=== PATIENT | male | born 1985 | race Caucasian/White ===

== ENCOUNTER 2017-05-06 10:03 | Emergency (ER) | payer OTHER ==
--- NOTE | 2017-05-06 10:15 | UC ---
Cardiac HPI - HPI Summary HPI Summary: sensation of heart racing today noticed the rate was as high as 170 on his watch. denies SOB/chest pain. This is the 3rd episode of such racing that he has had---he stopped inderal a few days ago--because his rate was controlled So he did take an inderal prior to arrival - History of Current Complaint Chief Complaint: UCCardiac Stated Complaint: HEART COMPLAINT Time Seen by Provider: 05/06/17 10:15 Hx Obtained From: Patient Onset/Duration: Sudden Onset, Lasting Hours, Still Present Timing: Constant Initial Severity: Moderate Current Severity: Moderate Character: Fast Aggravating: Nothing Alleviating: Medication - inderal - Allergy/Home Medications Allergies/Adverse Reactions: Allergies Allergy/AdvReac Type Severity Reaction Status Date / Time Hydrocodone Allergy Fatigue Verified 05/06/17 10:19 Nystatin [From Mycostatin] Allergy Anaphylatic Verified 05/06/17 10:19 Shock Home Medications: Home Medications Propranolol TAB* [Inderal TAB*] 20 mg PO DAILY PRN 05/06/17 [History Confirmed 05/06/17] PMH/Surg Hx/FS Hx/Imm Hx Previously Healthy: No Endocrine History: Hyperthyroidism - Family History Known Family History: Positive: None - Social History Occupation: Employed Full-time Lives: With Family Alcohol Use: None Substance Use Type: None Smoking Status (MU): Never Smoked Tobacco Review of Systems Constitutional: Negative Skin: Negative Eyes: Negative ENT: Negative Respiratory: Negative Cardiovascular: Negative Gastrointestinal: Negative Genitourinary: Negative Motor: Negative Neurovascular: Negative Musculoskeletal: Negative Neurological: Negative Psychological: Negative All Other Systems Reviewed And Are Negative: Yes Physical Exam Triage Information Reviewed: Yes Appearance: Well-Appearing, No Pain Distress, Well-Nourished Vital Signs Reviewed: Yes Eye Exam: Normal Eyes: Positive: Conjunctiva Clear ENT Exam: Normal ENT: Positive: Normal ENT inspection, Hearing grossly normal, Pharynx normal. Negative: Nasal congestion, Nasal drainage, Trismus, Muffled/hoarse voice Dental Exam: Normal Neck exam: Normal Neck: Positive: Supple, Nontender Respiratory Exam: Normal Respiratory: Positive: Chest non-tender, Lungs clear, Normal breath sounds, No respiratory distress, No accessory muscle use Cardiovascular Exam: Normal Cardiovascular: Positive: No Murmur, Pulses Normal, Brisk Capillary Refill, Tachycardia Musculoskeletal Exam: Normal Musculoskeletal: Positive: Strength Intact, ROM Intact, No Edema Neurological Exam: Normal Neurological: Positive: Alert, Muscle Tone Normal Psychological Exam: Normal Skin Exam: Normal Diagnostics - EKG Cardiac Rate: Tachycardia Cardiac Rhythm: Sinus: Normal Ectopy: None ST Segment: Normal - Assessment/Plan Course Of Treatment: d/c to follow up at the emergency department - Differential Diagnoses - Chest Pain Differential Diagnosis/HQI/PQRI: ACS - Differential Diagnoses - Hypertension Differential Diagnosis/HQI PQRI: Hyperthyroidism - Differential Diagnoses - Palpitations Differential Diagnosis/HQI/PQRI: Hypokalemia, Panic Disorder - Clinical Impression Provider Diagnoses: Tachycardia, hperthyroidism by history Discharge - Discharge Plan Condition: Good Disposition: OTHER Discharge Disposition Comment: to hospital by private car Patient Education Materials: Hyperthyroidism (ED), Tachycardia (ED) Referrals: No Primary Care Phys,NOPCP [Primary Care Provider] - Additional Instructions: We are recommending that you go directly to the emergency department for further evaluation
[2017-05-06 10:19] VITALS: BP 146/84
== END 2017-05-06 10:52 ==
LOC: UCEAST 10:03
DX: R00.0 Tachycardia, unspecified (principal); Z88.5 Allergy status to narcotic agent; E03.9 Hypothyroidism, unspecified
CPT/HCPCS: 93005; 99201; G0463

== ENCOUNTER 2017-05-06 11:14 | Emergency (ER) | payer OTHER ==
[2017-05-06 17:18] VITALS: BP 128/78
[2017-05-06 18:29] LABS: Hematocrit 44 % (42-52); Mean Corpuscular HGB Conc 34 g/dl (31-36); Mean Corpuscular Hemoglobin 30 pg (27-31); Mean Corpuscular Volume 88 fL (80-94); Mean Platelet Volume 9 um3 (7.4-10.4); Red Blood Count 5.02 10^6/ul (4.0-5.4); Red Cell Distribution Width 13 % (10.5-15); White Blood Count 7.2 10^3/ul (3.5-10.8)
[2017-05-06 18:40] LABS: ALT 21 U/L (7-52); AST 14 U/L (13-39); Alkaline Phosphatase 57 U/L (34-104); Anion Gap 5 mmol/L (2-11); BUN/Creatinine Ratio 17.1 (8-20); Blood Urea Nitrogen 14 mg/dL (6-24); CO2 Carbon Dioxide 27 mmol/L (22-32); Calcium 9.3 mg/dL (8.6-10.3); Chloride 105 mmol/L (101-111); Creatine Kinase 20 U/L (10-223); EGFR African American 139.2 (>60); EGFR Non-African American 108.2 (>60); Globulin 3.2 g/dL (2-4); Glucose 88 mg/dL (70-100); Magnesium 1.9 mg/dL (1.9-2.7); Potassium 3.7 mmol/L (3.5-5.0); Sodium 137 mmol/L (133-145); Total Protein 7.2 g/dL (6.4-8.9)
[2017-05-06 19:07] LABS: TSH (Thyroid Stimulating Horm) < 0.03 mcIU/mL (0.34-5.60)
[2017-05-06 19:14] LABS: Free T4 1.53 ng/dL (0.61-1.12)
--- NOTE | 2017-05-06 20:43 | ED ---
Palpitations / Dysrhythmia - HPI Summary HPI Summary: Patient presents to the ED with CC of tachycardia at 180 which quickly dissipated to 130 and after taking his dose of propanolol, decreased again to 80 and has remained stable x 5 hours. He comes today to get evaluated since he has never had a HR that high before. He has a history of hyperthyroidism and has had episodes of tachycardia. His PCP has given him propanolol only for use if he has a high HR. His last TSH was 0.01 with a 6.23 T4. He denies any cardiac issues and has had full workups in the past. Denies chest pain, feelings of palpations, SOB or light headedness. Denies any other symptoms. Stable on arrival and in NAD. Denies other medication use. Denies drug use including cocaine. Last tachy episode last week which was 150. He did not seek help at that time. - History of Current Complaint Hx Obtained From: Patient Onset/Duration: Sudden Onset Timing: Constant Severity Initially: Mild Severity Currently: None Character: Fast Aggravating: Nothing Alleviating: Medication Associated Signs & Symptoms: Negative Related History: Similar Episode/Dx as - prior episodes - Risk Factors Cardiac: Negative Pulmonary Embolism: Negative Atrial Fibrillation: Negative <Arielle Connelly - Last Filed: 05/06/17 20:36> <Radha Alanis - Last Filed: 05/08/17 07:45> - History of Current Complaint Chief Complaint: EDDysrhythmPalp Time Seen by Provider: 05/06/17 17:29 - Allergy/Home Medications Allergies/Adverse Reactions: Allergies Allergy/AdvReac Type Severity Reaction Status Date / Time Hydrocodone Allergy Fatigue Verified 05/06/17 10:19 Nystatin [From Mycostatin] Allergy Anaphylatic Verified 05/06/17 10:19 Shock PMH/Surg Hx/FS Hx/Imm Hx Previously Healthy: Yes Endocrine/Hematology History: Reports: Hx Thyroid Disease - hyperthyroid - Immunization History Hx Pertussis Vaccination: No Immunizations Up to Date: Unable to Obtain/Confirm Infectious Disease History: No Infectious Disease History: Denies: Traveled Outside the [place] in Last 30 Days - Social History Occupation: Employed Full-time Lives: With Family Alcohol Use: None Hx Substance Use: No Substance Use Type: Reports: None Hx Tobacco Use: No Smoking Status (MU): Former Smoker <Arielle Connelly - Last Filed: 05/06/17 20:36> Review of Systems Constitutional: Negative Eyes: Negative ENT: Negative Cardiovascular: Negative Positive: no symptoms reported, see HPI Musculoskeletal: Negative Positive: Other Neurological: Negative Psychological: Normal All Other Systems Reviewed And Are Negative: Yes <Lavelle Connellysusan Westfall - Last Filed: 05/06/17 20:36> Physical Exam Triage Information Reviewed: Yes Vital Signs On Initial Exam: Initial Vitals Temp Pulse Resp BP Pulse Ox 98.6 F 84 20 134/80 100 05/06/17 11:22 05/06/17 11:22 05/06/17 11:22 05/06/17 11:22 05/06/17 11:22 Vital Signs Reviewed: Yes Appearance: Positive: Well-Appearing, Well-Nourished Skin: Positive: Warm, Skin Color Reflects Adequate Perfusion Head/Face: Positive: Normal Head/Face Inspection Eyes: Positive: Normal, PERLA, Conjunctiva Clear Neck: Positive: Supple, No Lymphadenopathy Respiratory/Lung Sounds: Positive: Clear to Auscultation, Breath Sounds Present Cardiovascular: Positive: Normal, RRR Musculoskeletal: Positive: Strength/ROM Intact Neurological: Positive: Sensory/Motor Intact, Alert, Oriented to Person Place, Time, Speech Normal AVPU Assessment: Alert - [place] Coma Scale Coma Scale Total: 15 <Maricel,Arielle B - Last Filed: 05/06/17 20:36> Vital Signs On Initial Exam: Initial Vitals Temp Pulse Resp BP Pulse Ox 98.6 F 84 20 134/80 100 05/06/17 11:22 05/06/17 11:22 05/06/17 11:22 05/06/17 11:22 05/06/17 11:22 <Radha Alanis - Last Filed: 05/08/17 07:45> Diagnostics - Vital Signs Vital Signs Temp Pulse Resp BP Pulse Ox 05/06/17 19:32 99.0 F 05/06/17 17:15 98.6 F 72 20 128/78 99 05/06/17 15:54 98.6 F 75 20 135/80 100 05/06/17 13:21 98.4 F 70 20 128/80 100 05/06/17 11:22 98.6 F 84 20 134/80 100 - Laboratory Lab Results: Lab Results 05/06/17 05/06/17 05/06/17 Range/Units 18:10 18:10 18:10 WBC 7.2 (3.5-10.8) 10^3/ul RBC 5.02 (4.0-5.4) 10^6/ul Hgb 15.0 (14.0-18.0) g/dl Hct 44 (42-52) % MCV 88 (80-94) fL MCH 30 (27-31) pg MCHC 34 (31-36) g/dl RDW 13 (10.5-15) % Plt Count 288 (150-450) 10^3/ul MPV 9 (7.4-10.4) um3 Neut % (Auto) 64.5 (38-83) % Lymph % (Auto) 27.0 (25-47) % [place] % (Auto) 6.5 (1-9) % Eos % (Auto) 1.5 (0-6) % Baso % (Auto) 0.5 (0-2) % Absolute Neuts (auto) 4.6 (1.5-7.7) 10^3/ul Absolute Lymphs (auto) 1.9 (1.0-4.8) 10^3/ul Absolute Monos (auto) 0.5 (0-0.8) 10^3/ul Absolute Eos (auto) 0.1 (0-0.6) 10^3/ul Absolute Basos (auto) 0 (0-0.2) 10^3/ul Absolute Nucleated RBC 0.01 10^3/ul Nucleated RBC % 0.1 Sodium 137 (133-145) mmol/L Potassium 3.7 (3.5-5.0) mmol/L Chloride 105 (101-111) mmol/L Carbon Dioxide 27 (22-32) mmol/L Anion Gap 5 (2-11) mmol/L BUN 14 (6-24) mg/dL Creatinine 0.82 (0.67-1.17) mg/dL Est GFR ( Amer) 139.2 (>60) Est GFR (Non-Af Amer) 108.2 (>60) BUN/Creatinine Ratio 17.1 (8-20) Glucose 88 (70-100) mg/dL Lactic Acid 0.9 (0.5-2.0) mmol/L Calcium 9.3 (8.6-10.3) mg/dL Magnesium 1.9 (1.9-2.7) mg/dL Total Bilirubin 0.80 (0.2-1.0) mg/dL AST 14 (13-39) U/L ALT 21 (7-52) U/L Alkaline Phosphatase 57 (34-104) U/L Total Creatine Kinase 20 (10-223) U/L CK-MB (CK-2) 0.7 (0.6-6.3) ng/mL Troponin I 0.00 (<0.04) ng/mL Total Protein 7.2 (6.4-8.9) g/dL Albumin 4.0 (3.2-5.2) g/dL Globulin 3.2 (2-4) g/dL Albumin/Globulin Ratio 1.3 (1-3) TSH < 0.03 L (0.34-5.60) mcIU/mL Free T4 1.53 H (0.61-1.12) ng/dL Result Diagrams: 05/06/17 18:10 05/06/17 18:10 Lab Statement: Any lab studies that have been ordered have been reviewed, and results considered in the medical decision making process. <Arielle Connelly - Last Filed: 05/06/17 20:36> - Vital Signs Vital Signs Temp Pulse Resp BP Pulse Ox 05/06/17 19:32 99.0 F 05/06/17 17:15 98.6 F 72 20 128/78 99 05/06/17 15:54 98.6 F 75 20 135/80 100 05/06/17 13:21 98.4 F 70 20 128/80 100 05/06/17 11:22 98.6 F 84 20 134/80 100 - Laboratory Lab Results: Lab Results 05/06/17 05/06/17 05/06/17 Range/Units 18:10 18:10 18:10 WBC 7.2 (3.5-10.8) 10^3/ul RBC 5.02 (4.0-5.4) 10^6/ul Hgb 15.0 (14.0-18.0) g/dl Hct 44 (42-52) % MCV 88 (80-94) fL MCH 30 (27-31) pg MCHC 34 (31-36) g/dl RDW 13 (10.5-15) % Plt Count 288 (150-450) 10^3/ul MPV 9 (7.4-10.4) um3 Neut % (Auto) 64.5 (38-83) % Lymph % (Auto) 27.0 (25-47) % [place] % (Auto) 6.5 (1-9) % Eos % (Auto) 1.5 (0-6) % Baso % (Auto) 0.5 (0-2) % Absolute Neuts (auto) 4.6 (1.5-7.7) 10^3/ul Absolute Lymphs (auto) 1.9 (1.0-4.8) 10^3/ul Absolute Monos (auto) 0.5 (0-0.8) 10^3/ul Absolute Eos (auto) 0.1 (0-0.6) 10^3/ul Absolute Basos (auto) 0 (0-0.2) 10^3/ul Absolute Nucleated RBC 0.01 10^3/ul Nucleated RBC % 0.1 Sodium 137 (133-145) mmol/L Potassium 3.7 (3.5-5.0) mmol/L Chloride 105 (101-111) mmol/L Carbon Dioxide 27 (22-32) mmol/L Anion Gap 5 (2-11) mmol/L BUN 14 (6-24) mg/dL Creatinine 0.82 (0.67-1.17) mg/dL Est GFR ( Amer) 139.2 (>60) Est GFR (Non-Af Amer) 108.2 (>60) BUN/Creatinine Ratio 17.1 (8-20) Glucose 88 (70-100) mg/dL Lactic Acid 0.9 (0.5-2.0) mmol/L Calcium 9.3 (8.6-10.3) mg/dL Magnesium 1.9 (1.9-2.7) mg/dL Total Bilirubin 0.80 (0.2-1.0) mg/dL AST 14 (13-39) U/L ALT 21 (7-52) U/L Alkaline Phosphatase 57 (34-104) U/L Total Creatine Kinase 20 (10-223) U/L CK-MB (CK-2) 0.7 (0.6-6.3) ng/mL Troponin I 0.00 (<0.04) ng/mL Total Protein 7.2 (6.4-8.9) g/dL Albumin 4.0 (3.2-5.2) g/dL Globulin 3.2 (2-4) g/dL Albumin/Globulin Ratio 1.3 (1-3) TSH < 0.03 L (0.34-5.60) mcIU/mL Free T4 1.53 H (0.61-1.12) ng/dL Result Diagrams: 05/06/17 18:10 05/06/17 18:10 Lab Statement: Any lab studies that have been ordered have been reviewed, and results considered in the medical decision making process. <Radha Alanis - Last Filed: 05/08/17 07:45> Course/Dx - Course Course Of Treatment: On arrival to ED, patient is stable with normal VS and HR 80. He would just like to get checked out. EKG and labs OK. TSH is 0.03. He has propanolol at home for symptoms. After speaking with my attending, Dr Radha Alanis, we have agreed he is safe for discharge and will follow up with his instructor product inspection and PCP this week. Return precuations given. Patient is OK with discharge. This likely a combination of his hyperthyroid and episode of stress causing anxiety. - Diagnoses Differential Diagnosis/HQI/PQRI: Positive: Other - hyperthyroidism, a fib, tachycardia <Arielle Connelly - Last Filed: 05/06/17 20:36> <Radha Alanis - Last Filed: 05/08/17 07:45> - Diagnoses Provider Diagnoses: Tachycardia Discharge <Arielle Connelly - Last Filed: 05/06/17 20:36> <Radha Alanis - Last Filed: 05/08/17 07:45> - Discharge Plan Condition: Stable Disposition: HOME Patient Education Materials: Hyperthyroidism (ED), Tachycardia (ED) Referrals: No Primary Care Phys,NOPCP [Primary Care Provider] - Additional Instructions: Follow up with endocrinology Continue your regular medications without change IF symptoms persist or worsen, you may always return to the ED Attestation Statement User Type: Provider - I was available for consult. This patient was seen by the SHANNON. The patient was not presented to, seen by, or examined by me. -Ljj <Radha Alanis - Last Filed: 05/08/17 07:45>
== END 2017-05-06 19:32 | disposition home or self-care (01) ==
LOC: ED 11:14
DX: R00.0 Tachycardia, unspecified (principal); Z87.891 Personal history of nicotine dependence
CPT/HCPCS: 36415; 80053; 82550; 82553; 83605; 83735; 84439; 84443; 84484; 85025; 93005; 99282